=== PATIENT | female | born 1970 | race African-American/Black ===

== ENCOUNTER 2019-05-22 19:28 | Emergency (ER) | payer OTHER ==
[~2019-05-22] VITALS: Ht 162.6 cm; Wt 65.8 kg
[~2019-05-22 19:28] MED LIST: ASPIRIN EC81 M1 PO; CALCIUM + D SO1 EACH PO; FERRO-TIME325 MG PO; FISH OIL 1,0001 EAC5 PO; IRON; NORCO 5-325 TA1 EACH PO; NORTREL1 EAC1; VERAPAMIL ER240 MG PO
[2019-05-22 22:00] VITALS: BP 132/78
== END 2019-05-22 22:46 | disposition home or self-care (01) ==
LOC: ER 19:28
DX: S61.313A Laceration without foreign body of left middle finger with damage to nail, initial encounter (principal); I10 Essential (primary) hypertension; Z86.2 Personal history of diseases of the blood and blood-forming organs and certain disorders involving the immune mechanism; Z86.73 Personal history of transient ischemic attack (TIA), and cerebral infarction without residual deficits; Z88.0 Allergy status to penicillin; W26.9XXA Contact with unspecified sharp object(s), initial encounter; Y93.G3 Activity, cooking and baking; Y92.89 Other specified places as the place of occurrence of the external cause; Y99.8 Other external cause status